=== PATIENT | male | born 2000 | race Caucasian/White ===

== ENCOUNTER 2023-04-09 20:35 | Emergency (ER) | payer BC, SELFPAY ==
--- NOTE | ~2023-04-09 | XR_ITS ---
EXAMINATION: XR CHEST CLINICAL INFORMATION: Cough COMPARISON: None available. TECHNIQUE: Frontal view of the chest was obtained. FINDINGS: The lungs are clear with no focal consolidation. No evidence of pneumothorax, pulmonary edema, or pleural effusions. The cardiomediastinal silhouette is unremarkable. No acute osseous findings. XR/XR chest 1V IMPRESSION: No acute cardiopulmonary findings.
--- NOTE | 2023-04-09 20:43 | ED.GENADULT ---
HPI - General Adult General Chief complaint: Upper Respiratory Symptoms Stated complaint: problems swallowing Time Seen by Provider: 04/09/23 23:35 Source: patient, RN notes reviewed and old records reviewed Mode of arrival: ambulatory Limitations: no limitations History of Present Illness HPI narrative: 23-year-old male presents for evaluation of a sore throat. Patient reports sore throat for the last 3 days. Denies any fevers or chills. He is able to swallow has painful swallowing. He states that the pain is worse in the left side of his throat Denies any known sick contacts He reports his pain is severe when swallowing Related Data Allergies Allergy/AdvReac Type Severity Reaction Status Date / Time cephalexin [From Keflex] Allergy Unknown Verified 04/09/23 20:44 Review of Systems Constitutional: Constitutional: Denies chills and Denies fever(s) ENT: Reports sore throat and Denies throat swelling Cardiovascular: Cardiovascular: Denies dyspnea Respiratory: Respiratory: Denies cough and Denies dyspnea Gastrointestinal: Gastrointestinal: Denies abdominal pain and Denies vomiting Allergic/Immunologic: Allergic/Immunologic: Denies throat swelling PMFSH Social History Social History Alcohol intake: current Alcohol intake frequency: holidays/special occasions only Smoked in Last 30 Days: Yes Use of substances other than those prescribed or required for medical reasons: Yes Substance Use Type: Marijuana Substance Use Frequency: Chronic Longstanding Advance Directives: No Advance Directives Information Provided: No Physical Exam ED Vital Signs: Vital Signs - 24 hr 04/09/23 20:44 04/09/23 22:20 Temperature 98.3 F 97.7 F Pulse Rate 74 70 Respiratory Rate 18 Blood Pressure 148/56 H 139/50 L Pulse Oximetry 99 99 Oxygen Delivery Method Room Air Room Air BMI result Body Mass Index 39.5 Const General: healthy appearing, comfortable, no acute distress, alert and awake Nutritional Appearance: well nourished Orientation/consciousness: patient oriented x3 HENMT Other: Mildly erythematous oropharynx left greater than right. No significant tonsillar hypertrophy, no exudates. No evidence of peritonsillar abscess. Positive left peritonsillar lymphadenopathy Head: Yes normocephalic and Yes atraumatic Eyes Eyelids: Yes eyelids normal Conjunctivae: conjunctivae normal Sclerae: sclerae normal Corneas: corneas normal Pupils: Equal, round and reactive pupils present EOM: EOMs intact bilaterally Neck Neck: Yes full ROM Resp Effort & Inspection: normal respiratory effort, able to speak in complete sentences and not labored Skin General skin exam: no rashes or lesions noted and elasticity normal Neuro General: patient oriented x3 Cranial nerves: Yes Equal, round and reactive pupils present and Yes Bilaterally intact EOM present Cognition (Neuro): normal cognition Extrem Other: Moving all extremities well without any obvious deformities Course Course Course Narrative: RME - 23 yo male with no known medical problems, active smoker who presents to the ER for evaluation of worsening sore throat and difficulty swallowing for the last 4 days. Pain is severe on the left side when swallowing. Exam with erythematous and enlarged tonsils, uvula midline. Plan: strep and covid swabs Medications Administered Discontinued Medications Generic Name Dose Route Start Last Admin Trade Name Elizabeth PRN Reason Stop Dose Admin Lidocaine HCl 15 ml 04/09/23 23:53 04/10/23 00:04 Lidocaine Hcl Viscous 2 % 15 Ml Solution MUCOUS MEM 04/09/23 23:54 15 ml ONCE ONE Administration Ondansetron HCl 4 mg 04/09/23 23:53 04/09/23 23:57 Ondansetron Odt 4 Mg Tab.Rapdis TRANSLINGU 04/09/23 23:54 4 mg ONCE ONE Administration Medical Decision Making Medical Decision Making [facility] Narrative: Patient has acute pharyngitis on history and exam. Patient is negative for strep, no fever, no evidence of bacterial pharyngitis. Will treat symptomatically at this is likely a viral cause. No evidence of airway involvement. Patient's strep test was negative, he does not have COVID-19 Differential Diagnosis Pharyngitis Upper respiratory infection Viral syndrome Strep throat Mononucleosis Lab Data Labs: Lab Results 04/09/23 04/09/23 Range/Units 21:01 21:01 COVID-19 (TATUM) Negative (Negative) COVID-19 Clin Com See Note S. pyogenes GrpA CASSIUS Negative (Negative) Discharge Plan Discharge Clinical Impression: Pharyngitis Patient Disposition: Home, Self-Care Instructions: Pharyngitis (ED) Additional Instructions: You may use salt water gargles to help your pain. Use ibuprofen/Tylenol alternating every 4 hours as well Over body you may also use Chloraseptic spray as a [id number] topical anesthetic Follow-up with your primary doctor
[2023-04-09 20:44] VITALS: BP 148/56; PULSE 74; RESP 18; TEMP 36.8; O2SAT 99; BMI 39.5
[2023-04-09 21:17] LABS: IDNOW Serial# 08D9AD1C; Strep A Nucleic Acid Negative (Negative)
[2023-04-09 22:20] VITALS: BP 139/50; PULSE 70; TEMP 36.5; O2SAT 99
--- NOTE | 2023-04-09 22:48 | PC.NURSE ---
Pt ambulated to room under own power, endorsing difficulty swallowing, chest cough and throat pain x 3 days. Sts able to swallow own secretions, nd on assessment, maintaining own airway with no distress. CXR ordered in presence of cough and pain with cough. pendign provider assessment.
[2023-04-09 23:30] LABS: COVID-19 Test Negative (Negative); IDNOW Serial# 9DB6401D
[2023-04-09] MEDS: Ondansetron ODT 4 MG TAB.RAPDIS TRANSLINGU (23:57)
[2023-04-10] MEDS: Lidocaine HCl Viscous 2 % 15 ML SOLUTION MUCOUS MEM (00:04)
== END 2023-04-10 00:22 | disposition home or self-care (01) ==
PROVIDERS: Physician Assistant; Emergency Provider Internal Medicine
DX: J02.9 Acute pharyngitis, unspecified (principal); Z20.822 Contact with and (suspected) exposure to COVID-19
CPT/HCPCS: 71045; 87635; 87651; 99283; 99284